=== PATIENT | female | born 1950 | race Caucasian/White ===

== ENCOUNTER → 2018-01-17 | Outpatient (CLI) | payer OTHER, MEDICARE ==
[~2018-01-17] MED LIST: ACHD5005 PO; BENA20TA7 PO; CELE200C PO; CHOL500044 PO; DULO60CA58 PO; HYDR12.5 PO; PRAV40TA2 PO; TURM500C7 PO
--- NOTE | 2018-01-17 16:48 | Diagnostic Imaging Report ---
CT low-dose lung cancer screening. Indication: 10-[id number] history. Routine images of the thorax were obtained using the CT low-dose lung cancer screening protocol. There are no prior studies available for comparison. There is no focal lung mass identified. However there are vague groundglass opacities along the anterolateral aspect of the left upper lobe and lingula and left lower lobe. There is also a very small groundglass density along the periphery of the right upper lobe These findings may well be chronic in nature. The possibility that they are related to acute pneumonia/atelectasis should also be considered. There is also an irregular 7.2 x 17.8 mm pleural-based parenchymal density near the left heart border. This may well be secondary to scar formation. I would recommend a short-term (three-month) followup CT chest exam be performed for further study. Also, if there are previous exams available they would be helpful for comparison. There is no acute cardiopulmonary abnormality noted otherwise. Heart size is within normal limits. There are no coronary artery calcifications. Aorta is not abnormally dilated. There is no obvious mediastinal or hilar adenopathy. Thyroid gland is obscured by streak artifact and difficult to assess. There is no definite breast mass identified. According to our records, the patient's last mammogram was in 01/09/2011. If the patient has had a recent (within the last year) mammogram elsewhere then no further imaging would be necessary. If the patient has not had a recent mammogram, then mammography should be performed. The sections the upper abdomen failed to show any sign of acute abnormality. The bone windows are unremarkable for fracture or for a destructive lesion. Impression: 1. There is no parenchymal lung mass identified but there are vague groundglass densities involving much of the left lung and a small area of groundglass density in the right upper lobe. There also appears to be a pleural-based density near the left heart border. These findings may well be chronic in nature or there could be an element of acute pneumonia/atelectasis present. Clinical follow up is recommended. A short-term (three-month) followup CT chest exam should also be obtained. 2. There is no obvious breast mass. Recommendations as above. LungRads Category 4A These results will be discussed with Dr. Jen Sarah. Dictated on workstation # [id number]
== END ==
LOC: RAD 10:06
PROVIDERS: ATTEND Family Medicine
DX: Z12.2 Encounter for screening for malignant neoplasm of respiratory organs (principal); F17.210 Nicotine dependence, cigarettes, uncomplicated; J98.4 Other disorders of lung

== ENCOUNTER 2018-02-11 14:31 | Outpatient (CLI) | payer OTHER, MEDICARE ==
[~2018-02-11] VITALS: Ht 157.5 cm; Wt 73.9 kg
[2018-02-11] MEDS ORDERED: UBID100C44 PO (15:23)
[2018-02-11] MEDS ORDERED: DOXY100T2 PO (15:23)
[2018-02-11] MEDS ORDERED: PREG75CA PO (15:23)
[2018-02-11] MEDS ORDERED: PANT40TA3 PO (15:23)
== END 2018-02-11 15:29 | disposition home or self-care (01) ==
LOC: PREOP 14:31
PROVIDERS: ATTEND Orthopaedic Surgery
DX: Z01.818 Encounter for other preprocedural examination (principal)

== ENCOUNTER 2018-02-14 07:57 | Day surgery (SDC) | payer OTHER, MEDICARE ==
[~2018-02-14] VITALS: Ht 157.5 cm; Wt 73.9 kg
[~2018-02-14 07:57] MED LIST changes: +DOXY100T2 PO; +PANT40TA3 PO; +PREG75CA PO; +UBID100C44 PO
[2018-02-14 08:20] VITALS: BP 127/60
[2018-02-14] MEDS: LACTATED RINGERS 1,000 ML IV PRN ×2 (08:20→09:45)
[2018-02-14] MEDS ORDERED: ceFAZolin 2 GM IV Premixed 50 ML IV ONE (08:30)
[2018-02-14] MEDS ORDERED: BACITRACIN 100,000 UNIT/NS 1000 ML POUR BOTTLE IR ONE ×2 (08:30)
[2018-02-14] MEDS ORDERED: VANCOMYCIN 1000 MG/VIAL ONE (08:46)
[2018-02-14] MEDS ORDERED: BUP/EPI 0.5% 1:200,000 (SENSORCAINE) 30 ML VIAL ONE (08:46)
[2018-02-14] MEDS ORDERED: SUCCINYLCHOLINE INJ 100 MG/5 ML SYR ONE (08:52)
[2018-02-14] MEDS ORDERED: fentaNYL INJECTION 250 MCG/5 ML AMP ONE (08:52)
[2018-02-14] MEDS ORDERED: DEXAMETHASONE 10 MG/ML (DECADRON) 1 ML VIAL ONE (08:52)
[2018-02-14] MEDS ORDERED: LIDOCAINE PF 2% 5 ML (XYLOCAINE) VIAL ONE (08:52)
[2018-02-14] MEDS ORDERED: SEVOFLURANE (ULTANE) 15 ML INHAL SOLN ONE (08:52)
[2018-02-14] MEDS ORDERED: ONDANSETRON 4 MG/2 ML (SDV) Z0FRAN ONE (08:52)
[2018-02-14] MEDS ORDERED: PROPOFOL INJECTION 50 ML IV ONE (08:52)
[2018-02-14] MEDS ORDERED: MIDAZOLAM 2 MG/2 ML (VERSED) VIAL ONE (08:52)
[2018-02-14] MEDS ORDERED: OXYC1TAB87 PO (09:17)
--- NOTE | 2018-02-14 09:18 | Discharge Inst-Simple/Standard ---
Discharge Inst-Standard Discharge Medications New, Converted or Re-Newed RX: RX on Chart Patient Instructions/Follow Up Plan of Care/Instructions/FU: dont bend lift twist push pull or reach 5 lb weight restriciton keep incisions covered clean and dry Activity as Tolerated: No Discharge Diet: Regular Diet Return to The [facility] For: fever chills shortness of breath chest pain new onsent weakness or numbness KATHERYN HULL Feb 14, 2018 09:18
[2018-02-14] MEDS ORDERED: morphine INJ 10 MG/ML 1ML (SYR OR VIAL) ONE (10:28)
[2018-02-14] MEDS ORDERED: morphine INJ 10 MG/ML 1ML (SYR OR VIAL) IVP ONE (10:45)
[2018-02-14] MEDS ORDERED: HYDROmorphone 2 MG/ML VIAL (DILAUDID) IV ONE (10:45)
[2018-02-14] MEDS ORDERED: ONDANSETRON 4 MG/2 ML (SDV) Z0FRAN IVP PRN (10:45)
--- NOTE | 2018-02-14 11:06 | Diagnostic Imaging Report ---
INDICATION: Spinal cord stimulator placement. IMPRESSION: 10.7 seconds of fluoroscopy and a single digital image was obtained in Surgery during spinal cord stimulator lead placement. The image shows the lead projecting over the T9 vertebral body. Dictated by: Dictated on workstation # [id number]
[2018-02-14 11:15] VITALS: BP 117/75
[2018-02-14] MEDS ORDERED: oxyCODONE/APAP 5/325MG (PERCOCET 5) TABLET ONE (11:42)
[2018-02-14 11:45] VITALS: BP_SYST 117; BP_SYST 120; BP_DIAS 70; BP_DIAS 75
[2018-02-14] MEDS ORDERED: oxyCODONE/APAP 5/325MG (PERCOCET 5) TABLET PO ONE (13:15)
--- NOTE | 2018-02-14 14:32 | Anesthesia-General Post-Op ---
General Patient Condition Mental Status/LOC: Same as Preop Cardiovascular: Satisfactory Nausea/Vomiting: Absent Respiratory: Satisfactory Pain: Controlled Complications: Absent Post Op Complications Complications None Follow Up Care/Instructions Patient Instructions None needed. Anesthesia/Patient Condition Patient Condition Patient is doing well, no complaints, stable vital signs, no apparent adverse anesthesia problems. No complications reported per nursing. MAUDE ORO CRNA Feb 14, 2018 14:32
--- NOTE | 2018-02-14 15:21 | OPERATIVE REPORT ---
DATE OF SERVICE: 02/14/2018 SURGEON: Gaby Heller DO CONDITIONING MACHINE OPERATOR: EDITA Lozano This is a medically necessary procedure. Assistance was necessary for retraction of vital neurovascular structures. Without an assistant administrator, the procedure would not be possible. PREOPERATIVE DIAGNOSES: 1. Neuropathic pain syndrome. 2. Chronic pain syndrome. 3. Lumbar radiculopathy. POSTOPERATIVE DIAGNOSES: 1. Neuropathic pain syndrome. 2. Chronic pain syndrome. 3. Lumbar radiculopathy. PROCEDURES PERFORMED: 1. Placement of thoracic spinal cord stimulator paddle lead via thoracic laminotomy. 2. Placement of pulse generator. 3. Complex programming. COMPLICATIONS: None. SPECIMENS SENT: None. DRAINS PLACED: None. ANESTHESIA: General endotracheal anesthesia with local anesthetic. ESTIMATED BLOOD LOSS: Minimal. HISTORY OF PRESENT ILLNESS: The patient is a very pleasant 67-year-old female who presented to me after a very successful percutaneous spinal cord stimulator trial. She did wish to undergo placement of permanent stimulator. She understood the risks and benefits. DESCRIPTION OF PROCEDURE: The patient was identified by name on wrist band in the preoperative holding area. The operative site was signed, consent was signed. SCDs were placed. Neuro monitoring was hooked up and antibiotics were started. She was taken to the operating theater and placed under general endotracheal tube anesthesia and then transferred to the operating room table in the prone position. She was prepped and draped in usual sterile fashion. Formal timeout was conducted. I then made a midline thoracic incision and proceeded with bilateral subperiosteal paraspinal muscular approach exposing the posterior elements of interest. I used the high speed bur, Kerrison rongeurs to perform a laminotomy at the T9-T10 interspace. I gained access to the epidural space. I placed a [employer] Scooter Penta paddle lead into the midline epidural space behind the body of T8. I anchored that lead into the thoracic fascia. I then performed a complex programming gaining input from both the neuromonitoring tech and the [employer] Scooter rep, we did determine we were able to achieve equal left and right lower extremity stimulation with the lead in that position. Therefore, I made a right-sided lumbar flank incision. I developed subcutaneous pocket. I used a tunneler to tunnel the leads from the thoracic wound to the lumbar wound. I hooked up a pulse generator, finally tightened it and buried it in the subcutaneous tissue. I irrigated both wounds, maintained hemostasis and I closed the wounds in my usual layered fashion utilizing 0 Vicryl followed by 2-0 Vicryl followed by running 3-0 subcuticular stitch. I applied dressings, took the patient in the supine position to the PACU where she awoke without incident. She tolerated the procedure well. The plan at this time is to discharge the patient today. I will see her back in 2 weeks. She knows to avoid any bending, twisting, pushing, pulling. Please note instrumentation utilized was St[employer] Scooter spinal cord stimulator system. Job ID: [id number] DocumentID: [id number] Dictated Date: 02/14/2018 10:56:07 Material Chaser Date: 02/14/2018 15:20:14 Dictated By: GABY HELLER DO
== END 2018-02-14 12:10 | disposition home or self-care (01) ==
LOC: SDC 07:57
PROVIDERS: ATTEND Orthopaedic Surgery
DX: M54.16 Radiculopathy, lumbar region (principal); G89.4 Chronic pain syndrome; Z11.2 Encounter for screening for other bacterial diseases; M06.9 Rheumatoid arthritis, unspecified; F17.210 Nicotine dependence, cigarettes, uncomplicated; M41.20 Other idiopathic scoliosis, site unspecified; M51.27 Other intervertebral disc displacement, lumbosacral region; M51.37 Other intervertebral disc degeneration, lumbosacral region; Z79.899 Other long term (current) drug therapy
CPT/HCPCS: 87081

== ENCOUNTER → 2018-11-18 | Outpatient (CLI) | payer MEDICARE, OTHER ==
[~2018-11-18] MED LIST changes: -DULO60CA58 PO; +DULO60CA59 PO; +OXYC1TAB87 PO
--- NOTE | 2018-11-18 16:10 | Diagnostic Imaging Report ---
EXAMINATION: CT CHEST SCREENING WO INDICATION: Current smoker with greater than 83-[id number]-cscn history of smoking. Routine screening. Exam is also performed per followup recommendation of prior exam performed almost one year ago to reassess groundglass opacities in both lungs. TECHNIQUE: Low-dose helical CT of the chest without IV contrast (Adult Lung Cancer Screening) protocol was performed. Coronal MIP and sagittal MPR reformats are created. All CT scans use one or more of the following dose optimizing techniques: automated exposure control, MA and/or KvP adjustment based on a patient size and exam type, or iterative reconstruction. COMPARISON: Chest CT performed on 01/17/2018. FINDINGS: LUNG NODULES, solid unless otherwise specified, axial series 2: Right lung: * No nodules. Left lung: * No discrete nodule seen in the area of the previously demonstrated pleural-based nodular density along the inferior left heart border in the lingula. OTHER FINDINGS: Low-dose technique and absence of intravenous contrast decreases sensitivity for detection of lymphadenopathy and vascular pathology. Multiple images are degraded by artifact caused by the patient's spinal stimulator, which diminishes detail, and interpretation was made in light of this technical confine. TRACHEA AND MAIN BRONCHI: There is unchanged minimal focal indentation of the posterior mid trachea caused by a small mediastinal lymph node (image 38, series 3). This is unchanged in appearance. The trachea and main airways are patent, without evidence of tracheal or endobronchial lesion. LUNGS AND PLEURA: Interval resolution of the previously demonstrated scattered groundglass opacities. There is mild scarring in the inferior segment of the lingula along the left cardiac border. No consolidation or pulmonary mass. No pleural effusion or pneumothorax. MEDIASTINUM AND SHANNAN: Visualized thyroid gland is normal. There is an unchanged borderline enlarged precarinal lymph node (image 49, series 3). As stated above, there is an unchanged nonenlarged posterior tracheal lymph node which causes mild mass effect on the posterior trachea at this level. Esophagus is nondistended. HEART AND VESSELS: Heart is normal in size. No pericardial effusion. Thoracic aorta is nonaneurysmal. DIAPHRAGM AND UPPER ABDOMEN: Unremarkable. CHEST WALL: Unremarkable. BONES: No acute abnormality. IMPRESSION: 1. The previously demonstrated pleural-based nodular density in the lingula adjacent to the left cardiac border is no longer seen. This is felt to have been related to scarring, as there is residual scarring noted in this area. No new nodule or parenchymal mass is demonstrated. 2. Resolution of the previously demonstrated scattered groundglass opacities in both lungs. No new consolidation or acute abnormality is appreciated. 3. Unchanged borderline enlarged precarinal lymph node, which is of doubtful clinical significance given its stable appearance and may be reactive in nature or reflect the patient's baseline. There is also an unchanged nonenlarged posterior tracheal lymph node, which causes mild impression on the posterior mid trachea. LUNG-RADS CATEGORY: 1, Negative. No nodules. MODIFIER: None. RECOMMENDATIONS: Continue annual screening with low-dose CT in 12 months. Dictated by: Dictated on workstation # [id number]
== END ==
LOC: RAD 14:52
PROVIDERS: ATTEND Family Medicine
DX: R92.8 Other abnormal and inconclusive findings on diagnostic imaging of breast (principal); R59.0 Localized enlarged lymph nodes

== ENCOUNTER → 2018-12-16 | Outpatient (CLI) | payer MEDICARE ==
--- NOTE | 2018-12-16 14:10 | Diagnostic Imaging Report ---
INDICATION: Routine screening. COMPARISON: Comparison is made with prior mammogram from 01/09/2011. 2-D and 3-D bilateral screening mammography was performed. The current study was also evaluated with a Computer Aided Detection (CAD) system. 3-D tomosynthesis was also performed and reviewed. FINDINGS: Scattered fibroglandular densities are identified bilaterally. No dominant mass or malignant-appearing microcalcifications are seen. The axillae are unremarkable. IMPRESSION: No mammographic features suspicious for malignancy are identified. ACR BI-RADS Category 1: Negative. Result letter will be mailed to the patient. Note: At least 10% of breast cancer is not imaged by mammography. Dictated by: Dictated on workstation # [id number]
== END ==
LOC: RAD 10:33
PROVIDERS: ATTEND Family Medicine
DX: Z12.31 Encounter for screening mammogram for malignant neoplasm of breast (principal)
CPT/HCPCS: 77067

== ENCOUNTER → 2019-01-10 | Outpatient (CLI) | payer MEDICARE ==
--- NOTE | 2019-01-10 16:27 | Diagnostic Imaging Report ---
INDICATION: Postmenopausal state, vitamin D deficiency. COMPARISON: None available. FINDINGS: AP Spine L1-L4: [BMD (g/cm2): 1.080] [T-Score: -1.0] [Z-Score: 0.3] [BMD Previous: N/A] [BMD % Change: N/A] LT Hip Neck: [BMD (g/cm2): 0.921] [T-Score: -0.8] [Z-Score: 0.5] LT Hip Total: [BMD (g/cm2):0.964] [T-Score:-0.3] [Z-Score: 0.8] [BMD Previous: N/A] [BMD % Change: N/A] RT Hip Neck: [BMD (g/cm2):0.926] [T-Score:-0.8] [Z-Score:0.6] RT Hip Total: [BMD (g/cm2):0.917] [T-score:-0.7] [Z-Score:0.4] [BMD Previous:N/A] [BMD % Change:N/A] *Indicates significant change from prior examination based on 95% confidence level. World Health Organization criteria for BMD interpretation classify patients as Normal (T-score at or above -1.0), Osteopenic (T-score between -1.0 and -2.5) or Osteoporotic (T-score at or below -2.5). LIMITATIONS AND MODIFICATION: Moderate curvature of the lumbar spine. IMPRESSION: 1. Normal bone mineral density. However, bone mineral density within the lumbar spine is at the lower limits of normal. 2. Baseline examination. 3. See below National Osteoporosis Foundation guidelines on when to potentially initiate pharmacologic therapy. Based on the National Osteoporosis Foundation Guidelines, pharmacologic treatment should be initiated in any of the following, unless clinical conditions suggest otherwise: * Any patient with prior fragility fracture of the hip or vertebrae. A spine fracture indicates 5X risk for subsequent spine fracture and 2X risk for subsequent hip fracture. * Osteoporosis (T-score <-2.5). * Postmenopausal women and men age 50 and older with low bone mass/osteopenia (T-score between -1.0 and -2.5) by DXA and 10-year major osteoporotic fracture greater than 20% or a 10-year probability of hip fracture greater than 3%. These fracture risks are supplied above in the FRAX score, if applicable. * Clinician judgement and/or patient preferences may indicate treatment for people with 10-year fracture probabilities above or below these levels. Dictated by: Dictated on workstation # [id number]
== END ==
LOC: RAD 10:31
PROVIDERS: ATTEND Nurse Practitioner Family
DX: E55.9 Vitamin D deficiency, unspecified (principal); Z78.0 Asymptomatic menopausal state
CPT/HCPCS: 77080

== ENCOUNTER 2019-01-30 05:35 | Outpatient (CLI) | payer MEDICARE ==
[~2019-01-30] VITALS: Ht 157 cm; Wt 74.0 kg
== END 2019-01-30 10:28 ==
LOC: PREOP 05:35
PROVIDERS: ATTEND Surgery
DX: Z01.818 Encounter for other preprocedural examination (principal)

== ENCOUNTER 2020-03-28 05:31 | Outpatient (RCR) | payer MEDICARE ==
[~2020-03-28] VITALS: Ht 157.5 cm; Wt 62.7 kg
[~2020-03-28 05:31] MED LIST changes: +ASCO500C17 PO; +CELE-63 PO; +CHOL200074 PO; +CLC600T PO; +CYAN250014 PO; -PANT40TA3 PO; +PANT40TA52 PO; +UBID200C16 PO
== END 2020-03-28 13:43 | disposition home or self-care (01) ==
LOC: PREOP 05:31
PROVIDERS: ATTEND Surgery
DX: Z01.812 Encounter for preprocedural laboratory examination (principal); Z12.11 Encounter for screening for malignant neoplasm of colon; Z20.822 Contact with and (suspected) exposure to COVID-19
CPT/HCPCS: 87635

== ENCOUNTER 2020-04-01 09:47 | Day surgery (SDC) | payer MEDICARE ==
[~2020-04-01] VITALS: Ht 157 cm; Wt 62.7 kg
[2020-04-01 10:00] VITALS: BP 123/75
[2020-04-01] MEDS ORDERED: LACTATED RINGERS 1,000 ML IV ONE (10:07)
[2020-04-01] MEDS ORDERED: LACTATED RINGERS 1,000 ML IV STA (10:11)
[2020-04-01] MEDS ORDERED: PROPOFOL INJECTION 50 ML IV ONE (10:36)
--- NOTE | 2020-04-01 10:40 | Progress Note-Pre Operative ---
Pre-Operative Progress Note H&P Reviewed The H&P was reviewed, patient examined and no changes noted. Time Seen by Provider: 10:08 Date H&P Reviewed: Apr 01, 2020 Time H&P Reviewed: 10:09 Pre-Operative Diagnosis: Screening colonoscopy DEEPA ALLAN DO Apr 01, 2020 10:40
[2020-04-01 11:28] VITALS: BP 132/63
--- NOTE | 2020-04-01 11:28 | Progress Note-Post Operative ---
Post-Operative Progess Note Surgeon (s)/Social Sciences Lecturer (s) Surgeon DEEPA ALLAN DO Social Sciences Lecturer: KATHY Matthews Pre-Operative Diagnosis Screening colonoscopy Post-Operative Diagnosis Polyps Diverticula Int hemorrhoids Procedure & Operative Findings Date of Procedure 04/01/20 Procedure Performed/Findings Colon with snare Anesthesia Type IV sedation by SKIP PIT WORKER Estimated Blood Loss Estimated blood loss (mL): scant Specimens/Packing Specimens Removed desc colon polyp sigmoid polyp rectal polyp x 4 DEEPA ALLAN DO Apr 01, 2020 11:28
--- NOTE | 2020-04-01 11:29 | Endoscopy Discharge Instruct ---
Endo Procedure/Findings Findings 1.: Polyp 2.: Diverticulosis 3.: Internal Hemorrhoids Discharge Instructions - Activity: You might feel a little sleepy until tomorrow. This is due to the medicine you received to relax you. Until tomorrow, you should: NOT drive a car, operate machinery or power tools. NOT drink any alcoholic beverages. NOT make any important decisions or sign importortant papers. Do not return to work until tomorrow, unless otherwise instructed. Resume previous activities tomorrow. Diet: Start by taking liquids. If you tolerate liquids, advance to solid food. 1.: Colonscopy in 3 years Notify Physician - If you experience excessive bleeding, unusual abdominal pain, fever, or chest pain, contact your doctor immediately. DEEPA ALLAN DO Apr 01, 2020 11:29
[2020-04-01 11:33] VITALS: BP 133/61
[2020-04-01 11:35] VITALS: BP 133/61
--- NOTE | 2020-04-01 12:03 | Anesthesia-General Post-Op ---
MAC Patient Condition Mental Status/LOC: Same as Preop Cardiovascular: Satisfactory Nausea/Vomiting: Absent Respiratory: Satisfactory Pain: Controlled Complications: Absent Post Op Complications Complications None Follow Up Care/Instructions Patient Instructions None needed. Anesthesiology Discharge Order Discharge Order Patient is doing well, no complaints, stable vital signs, no apparent adverse anesthesia problems. No complications reported per nursing. DONG BRANDON CRNA Apr 01, 2020 12:03
[2020-04-01 12:05] VITALS: BP 140/69
[2020-04-01 12:30] VITALS: BP 140/69
--- NOTE | 2020-04-01 23:31 | OPERATIVE REPORT ---
DATE OF SERVICE: PREOPERATIVE DIAGNOSIS: Screening colonoscopy. POSTOPERATIVE DIAGNOSES: Colon polyps, diverticula, internal hemorrhoids and AVM. PROCEDURE: Colonoscopy with snare polypectomy. SURGEON: Elan Garcia, WORKGROUP LEADER: GEORGE Early. ANESTHESIA: IV sedation by the CRATE BUILDER. SPECIMEN: Descending colon polyp, one sigmoid colon polyp and 4 rectal polyps. BLOOD LOSS: Scant. FLUIDS: Per anesthesia. POSTOPERATIVE CONDITION: Stable. INDICATION FOR PROCEDURE: The patient is a 69-year-old female, who has never had a colonoscopy, needs one for screening. FINDINGS: The patient had multiple polyps. She also had an AVM in the cecum and she had some diverticula and internal hemorrhoids. PROCEDURE NOTE: After informed consent was obtained, the patient was brought to the endoscopy suite, placed in bed in left lateral decubitus position. She was administered IV sedation by the CRATE BUILDER who then monitored her vitals the entire time, heart rate, blood pressure and pulse ox. Inserted the scope, on the way in, noted a polyp in the descending colon, a snare polypectomy was performed. Also saw some diverticula, took a picture. Pushed all the way into about 150 cm, able to get to the cecum, here we noted an AVM and some actual blood in the ascending colon just outside the cecal cap could not see any other obvious pathology, I was unable to get into the terminal ileum, but it looked like it may have been from this AVM, did not see any active bleeding. Took a picture of the appendiceal orifice and then slowly withdrew the scope insufflating to look circumferentially at the richard looking the cecum, up the ascending colon to the hepatic flexure, then down the transverse colon, the splenic flexure, into the descending colon and into the sigmoid. In the sigmoid, saw another large polyp, did another snare polypectomy, also saw some more diverticula, took pictures and then down into in the rectum. In the rectum, saw 4 polyps, removed all 4 with snare polypectomy and then suctioned these up and then retroflexed the scope in the rectal vault, saw some minimal internal hemorrhoids, took a picture of this and then removed the scope. The patient tolerated the procedure. She recovered in endoscopy suite. Job ID: [id number] DocumentID: [id number] Dictated Date: 04/01/2020 18:45:45 Furniture Installer Date: 04/01/2020 23:26:01 Dictated By: ELAN GARCIA DO MTDD
== END 2020-04-01 12:30 | disposition home or self-care (01) ==
LOC: ENDO 09:47
PROVIDERS: ATTEND Surgery
DX: Z12.11 Encounter for screening for malignant neoplasm of colon (principal); D12.5 Benign neoplasm of sigmoid colon; D12.8 Benign neoplasm of rectum; K63.5 Polyp of colon; K57.30 Diverticulosis of large intestine without perforation or abscess without bleeding; K64.8 Other hemorrhoids; Q27.33 Arteriovenous malformation of digestive system vessel; G89.29 Other chronic pain; F41.9 Anxiety disorder, unspecified; K21.9 Gastro-esophageal reflux disease without esophagitis; M19.90 Unspecified osteoarthritis, unspecified site; F17.210 Nicotine dependence, cigarettes, uncomplicated; Z79.899 Other long term (current) drug therapy
CPT/HCPCS: 88305

== ENCOUNTER → 2020-05-27 | Outpatient (CLI) | payer MEDICARE ==
--- NOTE | 2020-05-27 10:22 | Diagnostic Imaging Report ---
CT Lung Screening INDICATION: Screening for lung cancer, 70-skfm-ppaj history of smoking. TECHNIQUE: Noncontrast, low-dose CT imaging performed according to the lung cancer screening protocol. Auto Exposure Controls were utilize during the CT exam to meet ALARA standards for radiation dose reduction. COMPARISON: November 18, 2018 and January 17, 2018. FINDINGS: Precarinal lymph node is at the upper limits of normal in size measuring just under 1 cm in short dimension. This is unchanged from the prior examinations. No new adenopathy within the chest. No aneurysmal dilatation of thoracic aorta. Minimal background vascular calcifications. The heart is within normal limits in size. No significant pericardial effusion. No pleural effusion. The trachea is patent. No pneumothorax. Minimal bronchiectatic changes within the lung bases, particularly the left lower lobe. Linear scarring within the lingula is again identified. Sub-0.4 cm left upper lobe pulmonary nodules are again noted not significantly changed from prior examinations. No new suspicious pulmonary nodule. The minimally visualized upper abdomen is unremarkable. Stimulator leads are noted extending into the central spinal canal within the thoracic spine. No acute osseous abnormality. IMPRESSION: 1. Stable sub-0.6 cm solid left upper lobe pulmonary nodules without new suspicious pulmonary nodule. 2. Stable precarinal lymph node at the upper limits of normal in size, unchanged since 2018. Given stability since 2018, this is likely not clinically significant. 3. Additional stable findings as described above, including scarring within the lingula and minimal bronchiectatic changes. LUNG-RADS CATEGORY: 2: Benign appearance or behavior. Follow-up: Continued annual low-dose CT of the chest in 12 months. Dictated by: Dictated on workstation # [id number]
--- NOTE | 2020-05-28 09:40 | Diagnostic Imaging Report ---
EXAMINATION: Digital mammogram INDICATION: Bilateral screening This study was compared to the prior exam of 12/16/2018. At this time there are no current complaints. The current study was also evaluated with a Computer Aided Detection (CAD) system. FINDINGS: There are scattered fibroglandular densities in both breasts which could obscure a lesion. Overall, there does not appear to have been any significant change when compared to the prior exam. No primary or secondary sign of malignancy is noted. IMPRESSION: 1. There is no radiographic evidence for malignancy. 2. The patient should have her annual bilateral screening mammogram on schedule in April 2021. ACR category 1 ACR BI-RADS Category 1: Negative. Result letter will be mailed to the patient. Note: At least 10% of breast cancer is not imaged by mammography. Dictated by: Dictated on workstation # [id number]
== END ==
LOC: RAD 08:30
PROVIDERS: ATTEND Family Medicine
DX: Z12.31 Encounter for screening mammogram for malignant neoplasm of breast (principal); Z12.2 Encounter for screening for malignant neoplasm of respiratory organs; R91.8 Other nonspecific abnormal finding of lung field; F17.210 Nicotine dependence, cigarettes, uncomplicated
CPT/HCPCS: 71271; 77063; 77067